=== PATIENT | female | born 1950 | race Hispanic/Latino ===

== ENCOUNTER 2018-08-04 09:30 | Emergency (ER) | payer OTHER, MEDICARE ==
[~2018-08-04] VITALS: Ht 154.9 cm; Wt 88.5 kg
--- OUTSIDE RECORDS SUMMARY | 2018-08-04 09:34 | XMS REPORT | Clinical Summary ---
Author Author [facility] Address Unknown Phone Unavailable Care Team Providers Care Manager Mechanical Maintenance Name Role Phone Asked, No Pcp PCP Unavailable Allergies No Known Allergies Medications No known medications Active Problems Not on file Social History Date Tobacco Use Types Packs/Day Years Used Never Smoker Smokeless Tobacco: Never Used Alcohol Use Drinks/Week oz/Week Comments No Sex Assigned at Date Recorded Not on file Industry Job Start Date Occupation Not on file Not on file Not on file Travel End Travel History Travel Start No recent travel history available. Last Filed Vital Signs Not on file Plan of Treatment Health Maintenance Due Date Last Done Comments BREAST CANCER SCREENING 2001 COLON CANCER SCREENING 2001 SHINGLES VACCINES (#1) 2001 65+ PNEUMOCOCCAL VACCINE 2016 (1 of 2 - PCV13) PNEUMOCOCCAL 2016 POLYSACCHARIDE VACCINE AGE 65 AND OVER INFLUENZA VACCINE 10/20/2018 12/26/2014 Results Not on fileafter 08/03/2017 Insurance Payer Benefit Subscriber ID Type Phone Address Plan / Group MEDICAID MEDICAID xxxxxxxxx Medicaid UHC MEDICAID UNITEDHC xxxxxxxxx HMO [facility] [place] MEDICARE MEDICARE xxxxxxxxxx Medicare [place], [place] PART B Advance Directives Patient has advance care planning documents on file. For more information, alejandrina lentz contact: [place] [address] [place] [address]
--- OUTSIDE RECORDS SUMMARY | 2018-08-04 09:34 | XMS REPORT ---
[facility] Address Unknown Phone Unavailable Care Team Providers Care Quality Reviewer Name Role Phone Unavailable Unavailable Problems This patient has no known problems. Allergies, Adverse Reactions, Alerts This patient has no known allergies or adverse reactions. Medications This patient has no known medications. Encounters Start Date/Time End Date/Time Encounter Type Admission Type Attending [facility] Facility Care Department Encounter ID 2017-08-09 13:11:14 2017-08-09 13:11:14 Outpatient [facility] [id number] 2017-07-29 07:42:36 2017-07-29 07:42:36 Outpatient [facility] [id number] 2017-07-20 09:19:22 2017-07-20 09:19:22 Outpatient [facility] [id number] 2017-07-20 07:58:18 2017-07-20 07:58:18 Outpatient [facility] [id number] 2017-07-14 00:00:00 2017-07-14 00:00:00 Outpatient [facility] [id number] 2017-07-12 15:46:12 2017-07-12 15:46:12 Outpatient [facility] [id number] 2017-06-03 10:39:49 2017-06-03 10:39:49 Outpatient [facility] [id number] 2017-05-06 00:00:00 2017-05-06 00:00:00 Outpatient [facility] [id number] 2017-04-30 10:30:18 2017-04-30 10:30:18 Outpatient [facility] [id number] 2017-04-20 09:36:11 2017-04-20 09:36:11 Outpatient [facility] [id number] 2017-04-20 09:11:16 2017-04-20 09:11:16 Outpatient [facility] [id number] 2017-04-19 11:10:50 2017-04-19 11:10:50 Outpatient [facility] [id number] 2017-04-14 15:39:41 2017-04-14 15:39:41 Outpatient [facility] [id number] 2017-04-09 09:59:04 2017-04-09 09:59:04 Outpatient [facility] [id number] 2017-04-01 00:00:00 2017-04-01 00:00:00 Outpatient [facility] [id number] 2017-02-23 09:17:08 2017-02-23 09:17:08 Outpatient [facility] [id number] 2017-02-10 07:21:59 2017-02-10 07:21:59 Outpatient [facility] [id number] 2017-01-13 15:42:22 2017-01-13 15:42:22 Outpatient [facility] [id number] 2017-01-13 14:19:32 2017-01-13 14:19:32 Outpatient [facility] [id number] 2016-12-16 00:00:00 2016-12-16 00:00:00 Outpatient [facility] [id number] 2016-12-15 08:37:31 2016-12-15 08:37:31 Outpatient [facility] [id number] 2016-11-27 13:22:06 2016-11-27 13:22:06 Outpatient [facility] [id number] 2016-11-26 09:31:31 2016-11-26 09:31:31 Outpatient [facility] [id number] 2016-11-24 08:23:02 2016-11-24 08:23:02 Outpatient [facility] [id number] 2016-10-28 08:14:51 2016-10-28 08:14:51 Outpatient [facility] [id number] 2016-09-15 13:42:38 2016-09-15 13:42:38 Outpatient [facility] [id number] 2016-09-14 09:57:31 2016-09-14 09:57:31 Outpatient [facility] [id number] 2016-09-04 09:16:04 2016-09-04 09:16:04 Outpatient [facility] [id number] 2016-09-02 15:18:58 2016-09-02 15:18:58 Outpatient [facility] [id number]
[2018-08-04] MEDS ORDERED: SODIUM CHLORIDE 0.9% 500ML 500 ML IV ONE ×2 (10:06→10:15)
[2018-08-04] MEDS ORDERED: IOPAMIDOL 370 MG/ML 50ML INFUS..BTL INJ ONE (11:30)
--- NOTE | 2018-08-04 11:37 | Diagnostic Imaging Report ---
EXAMINATION: CT of the abdomen and pelvis with contrast. TECHNIQUE: Spiral CT images of the abdomen and pelvis were performed from the lung bases to the lesser trochanters after the intravenous administration of 100 cc Isovue-370. Coronal and sagittal reformatted images were obtained. COMPARISON: None. CLINICAL HISTORY:Left-sided abdominal pain x3 days DISCUSSION: ABDOMEN/PELVIS: LOWER THORAX:Subsegmental atelectasis in the dependent lower lobes. HEPATOBILIARY: Nodular hepatic contour. No focal hepatic lesion or intrahepatic biliary ductal dilatation. Multiple radiopaque calculi in the dependent portion of the gallbladder. No pericholecystic inflammation. SPLEEN: No splenomegaly. PANCREAS: No focal masses or ductal dilatation. ADRENALS: No adrenal nodules. KIDNEYS/URETERS: Subcentimeter hypoattenuating lesion in the left kidney is too small to further characterize but likely to represent a cyst. No hydronephrosis or calculi. PELVIC ORGANS/BLADDER: Urinary bladder is collapsed and poorly evaluated. The uterus is not identified and has likely been resected. No adnexal mass. PERITONEUM/RETROPERITONEUM: No ascites or pneumoperitoneum. LYMPH NODES: No pelvic sidewall, retroperitoneal, or mesenteric lymphadenopathy. VESSELS: Abdominal aorta, major branch vessels, and iliac arterial systems are patent. Mild calcified and noncalcified atherosclerotic plaque of the abdominal aorta. Portal vein, splenic vein, and central superior mesenteric vein are patent. GI TRACT: There are multiple diverticula along the descending and sigmoid colon without wall thickening or mesocolic inflammation. Probable calcified mesenteric lymph node along the right colon. The appendix is not identified. No right lower quadrant inflammation. The stomach is collapsed with prominent rugal folds. No small bowel dilatation to suggest obstruction. Small duodenal diverticulum. BONES AND SOFT TISSUE: No osseous destructive lesions. Bilateral L5 pars interarticularis defects with 9 mm anterolisthesis of L5 over S1. No soft tissue abnormalities. IMPRESSION: No acute intra-abdominal or pelvic CT abnormalities. Cholelithiasis without findings of acute cholecystitis. Sigmoid and descending colon diverticulosis without findings of diverticulitis. Nodular hepatic contour suggests underlying cirrhosis. Signed by: Dr. Milan Frias M.D. on 08/04/2018 11:34 AM
[2018-08-04 12:19] VITALS: BP 148/75
== END 2018-08-04 12:23 | disposition home or self-care (01) ==
LOC: FSED 09:30
DX: R30.0 Dysuria (principal); R10.32 Left lower quadrant pain
CPT/HCPCS: 74177; 80053; 81003; 85025; 99284; J7040; Q9967